=== PATIENT | female | born 1990 | race Caucasian/White ===

== ENCOUNTER 2016-09-04 18:54 | Emergency (ER) | payer OTHER ==
[~2016-09-04] VITALS: Ht 167.6 cm; Wt 88.5 kg
[~2016-09-04 18:54] MED LIST: ACULAR 3 ML3 M1 OP; ALBUTEROL2.5 MG/0.5 INH; ANAPROX DS550 MG PO; ANTIVERT25 MG PO; ATARAX25 MG PO; BACTRIM DS 8001 TA1 PO; BIAXIN500 MG PO; CLARITIN10 MG PO; CLINDAMYCIN HC300 MG PO; COLACE100 MG PO; FERROUS SULFAT325 MG PO; FLEXERIL10 MG PO; HYDROCODONE BIT1 T11 PO; LOMOTIL 0.025 M1 TAB PO; MACROBID100 M1 PO; MOTRIN800 MG PO; Motrin,Rufen800 MG PO; NKHM; NUVARING1 ICR VG; Ondansetron4 MG PO; PHENERGAN25 M1 PO; PHENERGAN25 MG RC; PRENATAL1 TA1 PO; PROGESTERONE; PROTONIX40 MG PO; TOBRADEX 0.1%-0.5 ML OPH; TOBREX OPHTH S2.5 ML OPH; ZITHROMAX Z PA250 MG PO; ZOFRAN ODT8 MG PO
[2016-09-04] MEDS ORDERED: PRENATAL VITAM1 EAC4 PO (19:15)
[2016-09-04 19:36] LABS: BASO % 0.3 % (0.0-1.0); EOS # 0.1 10*3/uL (0.0-0.4); HEMATOCRIT 41.4 % (37.0-47.0); HEMOGLOBIN 13.9 g/dl (12.0-16.0); LYMPH # 2.9 10*3/uL (1.3-4.4); LYMPH % 25.2 % (27.0-41.0); MEAN CELL VOLUME 90.2 fl (81.0-99.0); MEAN CORPUSCULAR HGB 30.3 pg (27.0-31.0); MEAN CORPUSCULAR HGB CONC 33.6 g/dl (33.0-37.0); MEAN PLATELET VOLUME 8.5 fl (9.6-12.3); MONO # 0.7 10*3/uL (0.1-1.0); MONO % 5.6 % (3.0-9.0); NEUT # 7.8 10*3/uL (2.3-7.9); NEUT % 67.6 % (47.0-73.0); PLATELET COUNT AUTOMATED 330 10*3/uL (130-400); RED BLOOD COUNT 4.59 10*6/uL (4.10-5.10); RED CELL DISTRI WIDTH 12.7 % (0-14.5); WHITE BLOOD COUNT 11.6 10*3/uL (4.8-10.8)
[2016-09-04 19:46] LABS: BILIRUBIN NEGATIVE (NEGATIVE); BLOOD 3+ (NEGATIVE); CLARITY SL CLOUDY (CLEAR); COLOR YELLOW (YELLOW); GLUCOSE NEGATIVE (NEGATIVE); KETONE 1+ (NEGATIVE); LEUKO ESTERASE NEGATIVE (NEGATIVE); NITRITE NEGATIVE (NEGATIVE); PH 5.5 (5.0-9.0); PROTEIN TRACE (NEGATIVE); SPECIFIC GRAVITY >= 1.030 (1.005-1.030); UROBILINOGEN 0.2 E.U./dl (0.2-1.0)
[2016-09-04 19:56] LABS: BACTERIA 1+; EPITHELIAL CELLS TNTC; MUCOUS 1+; URINE REFLEX COMMENT YES (NO)
[2016-09-04 20:06] LABS: BUN 11 mg/dl (7-24); CARBON DIOXIDE 26 mmol/L (21-32); CHLORIDE 104 mmol/L (98-107); EST GLOM FILT AFRICAN AMERICAN > 60 ml/min; GLUCOSE 77 mg/dL (65-99); POTASSIUM 4.1 mmol/L (3.5-5.1); SODIUM 141 mmol/L (136-145)
== END 2016-09-04 20:32 | disposition home or self-care (01) ==
LOC: ED 18:54
PROVIDERS: Nurse Practitioner Family
DX: O46.91 Antepartum hemorrhage, unspecified, first trimester (principal); Z3A.01 Less than 8 weeks gestation of pregnancy; F17.200 Nicotine dependence, unspecified, uncomplicated; Z88.0 Allergy status to penicillin; Z88.1 Allergy status to other antibiotic agents

== ENCOUNTER 2017-01-02 14:14 | Emergency (ER) | payer OTHER ==
[~2017-01-02] VITALS: Ht 167.6 cm; Wt 84.8 kg
[~2017-01-02 14:14] MED LIST changes: +PRENATAL VITAM1 EAC4 PO
[2017-01-02 14:58] LABS: BASO % 0.3 % (0.0-1.0); EOS # 0.2 10*3/uL (0.0-0.4); EOS % 1.1 % (1.0-4.0); HEMATOCRIT 36.6 % (37.0-47.0); HEMOGLOBIN 12.3 g/dl (12.0-16.0); IG # 0.1 10*3/uL (0.0-0.1); LYMPH # 2.7 10*3/uL (1.3-4.4); LYMPH % 18.7 % (27.0-41.0); MEAN CORPUSCULAR HGB 30.9 pg (27.0-31.0); MEAN CORPUSCULAR HGB CONC 33.6 g/dl (33.0-37.0); MEAN PLATELET VOLUME 8.9 fl (9.6-12.3); MONO # 0.7 10*3/uL (0.1-1.0); MONO % 4.5 % (3.0-9.0); NEUT # 10.8 10*3/uL (2.3-7.9); NEUT % 74.9 % (47.0-73.0); PLATELET COUNT AUTOMATED 306 10*3/uL (130-400); RED BLOOD COUNT 3.98 10*6/uL (4.10-5.10); RED CELL DISTRI WIDTH 12.5 % (0-14.5); WHITE BLOOD COUNT 14.4 10*3/uL (4.8-10.8)
[2017-01-02 15:14] LABS: ALKALINE PHOSPHATASE 62 U/L (45-117); BILIRUBIN, TOTAL 0.3 mg/dl (0.2-1.0); BUN 9 mg/dl (7-24); CARBON DIOXIDE 24 mmol/L (21-32); CHLORIDE 105 mmol/L (98-107); EST GLOM FILT AFRICAN AMERICAN > 60 ml/min; GLUCOSE 75 mg/dL (65-99); POTASSIUM 3.7 mmol/L (3.5-5.1); SGOT/AST 13 IU/L (3-35); SGPT/ALT 11 U/L (12-78); SODIUM 140 mmol/L (136-145); TOTAL PROTEIN 6.7 gm/dL (6.4-8.2)
[2017-01-02 15:27] LABS: BILIRUBIN NEGATIVE (NEGATIVE); BLOOD NEGATIVE (NEGATIVE); CLARITY SL CLOUDY (CLEAR); COLOR YELLOW (YELLOW); GLUCOSE NEGATIVE (NEGATIVE); KETONE NEGATIVE (NEGATIVE); LEUKO ESTERASE TRACE (NEGATIVE); NITRITE NEGATIVE (NEGATIVE); PROTEIN NEGATIVE (NEGATIVE); SPECIFIC GRAVITY 1.025 (1.005-1.030); UROBILINOGEN 0.2 E.U./dl (0.2-1.0)
[2017-01-02 15:35] LABS: BACTERIA 1+; MUCOUS 1+; RBC 0-2 rbc/hpf (0-2); URINE REFLEX COMMENT YES (NO)
== END 2017-01-02 16:45 | disposition home or self-care (01) ==
LOC: ED 14:14
PROVIDERS: Student in an Organized Health Care Education/Training Program
DX: O23.42 Unspecified infection of urinary tract in pregnancy, second trimester (principal); Z3A.23 23 weeks gestation of pregnancy; Z88.0 Allergy status to penicillin; Z88.1 Allergy status to other antibiotic agents; F41.9 Anxiety disorder, unspecified

== ENCOUNTER 2017-01-21 22:04 | Emergency (ER) | payer OTHER ==
[~2017-01-21] VITALS: Ht 167.6 cm; Wt 86.6 kg
[2017-01-21] MEDS ORDERED: MACROBID100 M1 PO (22:15)
== END 2017-01-21 22:36 | disposition left against medical advice (07) ==
LOC: ED 22:04
DX: Z00.8 Encounter for other general examination (principal); Z3A.26 26 weeks gestation of pregnancy; Z53.21 Procedure and treatment not carried out due to patient leaving prior to being seen by health care provider

== ENCOUNTER → 2017-06-03 | Outpatient (CLI) | payer OTHER | END | disposition home or self-care (01) | LOC: LAB 17:15 | DX: B95.62 Methicillin resistant Staphylococcus aureus infection as the cause of diseases classified elsewhere (principal) ==

== ENCOUNTER → 2017-10-18 | Outpatient (CLI) | payer OTHER | END | disposition home or self-care (01) | LOC: US 15:00 | DX: R10.9 Unspecified abdominal pain (principal); N89.9 Noninflammatory disorder of vagina, unspecified ==

== ENCOUNTER 2017-11-09 17:47 | Emergency (ER) | payer OTHER ==
[~2017-11-09] VITALS: Ht 167.6 cm; Wt 95.3 kg
== END 2017-11-09 19:52 | disposition home or self-care (01) ==
LOC: ED 17:47
DX: S62.334A Displaced fracture of neck of fourth metacarpal bone, right hand, initial encounter for closed fracture (principal); Z98.890 Other specified postprocedural states; Z79.899 Other long term (current) drug therapy; Z88.0 Allergy status to penicillin; Z88.1 Allergy status to other antibiotic agents; W22.01XA Walked into wall, initial encounter; Y93.89 Activity, other specified; Y92.89 Other specified places as the place of occurrence of the external cause; Y99.9 Unspecified external cause status

== ENCOUNTER → 2017-12-12 | Outpatient (CLI) | payer OTHER | END | disposition home or self-care (01) | LOC: ORTHO 02:42 | DX: S62.394D Other fracture of fourth metacarpal bone, right hand, subsequent encounter for fracture with routine healing (principal); X58.XXXD Exposure to other specified factors, subsequent encounter ==

== ENCOUNTER → 2018-01-03 | Outpatient (CLI) | payer OTHER | END | disposition home or self-care (01) | LOC: LAB 04:19 → ORTHO 04:19 | DX: Z47.89 Encounter for other orthopedic aftercare (principal); S62.334D Displaced fracture of neck of fourth metacarpal bone, right hand, subsequent encounter for fracture with routine healing; X58.XXXD Exposure to other specified factors, subsequent encounter ==

== ENCOUNTER → 2018-11-07 | Outpatient (CLI) | payer OTHER ==
[~2018-11-07] MED LIST changes: +ZOFRAN4 MG PO
[2018-11-07 19:23] LABS: PTH INTACT 175.6 pg/mL (18.5-88.0)
== END | disposition home or self-care (01) ==
LOC: LAB 17:07
PROVIDERS: Nurse Practitioner Family
DX: E83.51 Hypocalcemia (principal)

== ENCOUNTER → 2018-11-08 | Outpatient (CLI) | payer OTHER ==
[2018-11-10 17:07] LABS: HEPATITIS C QNT HCV Not Detected IU/mL (.)
== END | disposition home or self-care (01) ==
LOC: LAB 17:09
PROVIDERS: Nurse Practitioner Family
DX: R76.8 Other specified abnormal immunological findings in serum (principal)

== ENCOUNTER → 2018-12-11 | Outpatient (CLI) | payer OTHER ==
[2018-12-11 14:30] LABS: ALBUMIN 3.8 gm/dl (3.1-4.5); ALKALINE PHOSPHATASE 96 U/L (45-117); BUN 10 mg/dl (7-24); CHLORIDE 108 mmol/L (98-107); CREATININE 0.93 mg/dL (0.55-1.02); PHOSPHOROUS 2.5 mg/dL (2.5-4.9); SGOT/AST 14 IU/L (3-35); SGPT/ALT 19 U/L (12-78); SODIUM 141 mmol/L (136-145); TOTAL PROTEIN 7.4 gm/dL (6.4-8.2)
[2018-12-11 14:31] LABS: FREE T4 1.07 ng/dl (0.76-1.46)
[2018-12-11 15:15] LABS: PTH INTACT 110.8 pg/mL (18.5-88.0); VITAMIN D, 25-HYDROXY 18.5 ng/mL (30-100)
== END | disposition home or self-care (01) ==
LOC: LAB 13:47
PROVIDERS: Internal Medicine Endocrinology, Diabetes & Metabolism
DX: E03.9 Hypothyroidism, unspecified (principal); E83.51 Hypocalcemia

== ENCOUNTER → 2018-12-17 | Outpatient (CLI) | payer OTHER | END | disposition home or self-care (01) | LOC: LAB 12:41 | DX: E83.51 Hypocalcemia (principal); E03.9 Hypothyroidism, unspecified ==

== ENCOUNTER → 2019-02-15 | Outpatient (CLI) | payer OTHER | END | disposition home or self-care (01) | LOC: CT 09:57 | DX: S00.83XD Contusion of other part of head, subsequent encounter (principal); X58.XXXD Exposure to other specified factors, subsequent encounter ==

== ENCOUNTER → 2019-09-06 | Outpatient (CLI) | payer OTHER | END | disposition home or self-care (01) | LOC: RAD 14:37 | DX: R07.9 Chest pain, unspecified (principal); F41.9 Anxiety disorder, unspecified; R61 Generalized hyperhidrosis; R11.0 Nausea ==

== ENCOUNTER → 2019-09-19 | Outpatient (CLI) | payer OTHER | END | disposition home or self-care (01) | LOC: CARD 14:00 | DX: R00.2 Palpitations (principal) ==

== ENCOUNTER 2020-01-22 18:10 | Emergency (ER) | payer OTHER ==
[~2020-01-22] VITALS: Ht 167.6 cm; Wt 79.4 kg
== END 2020-01-22 18:27 | disposition home or self-care (01) ==
LOC: ED 18:10
DX: B34.9 Viral infection, unspecified (principal); R19.7 Diarrhea, unspecified; R53.83 Other fatigue; R07.89 Other chest pain; M79.10 Myalgia, unspecified site; Z88.1 Allergy status to other antibiotic agents; Z88.0 Allergy status to penicillin

== ENCOUNTER → 2020-03-25 | Outpatient (CLI) | payer OTHER | END | disposition home or self-care (01) | LOC: COVID19 00:49 | DX: U07.1 COVID-19 (principal); R05 Cough; R43.2 Parageusia; R43.0 Anosmia ==

== ENCOUNTER 2020-03-31 09:27 | Emergency (ER) | payer OTHER ==
[~2020-03-31] VITALS: Wt 79.4 kg
== END 2020-03-31 12:02 | disposition home or self-care (01) ==
LOC: ED 09:27
DX: R50.9 Fever, unspecified (principal); R06.02 Shortness of breath; R07.89 Other chest pain; R42 Dizziness and giddiness; R11.2 Nausea with vomiting, unspecified; R19.7 Diarrhea, unspecified; M79.10 Myalgia, unspecified site; Z20.828 Contact with and (suspected) exposure to other viral communicable diseases; Z88.1 Allergy status to other antibiotic agents; Z88.0 Allergy status to penicillin; Z87.891 Personal history of nicotine dependence; W01.0XXA Fall on same level from slipping, tripping and stumbling without subsequent striking against object, initial encounter; Y93.89 Activity, other specified; Y92.89 Other specified places as the place of occurrence of the external cause; Y99.8 Other external cause status

== ENCOUNTER → 2020-04-17 | Outpatient (CLI) | payer OTHER | END | disposition home or self-care (01) | LOC: CARD 17:10 | PROVIDERS: ATTEND Nurse Practitioner Family | DX: R07.9 Chest pain, unspecified (principal); U07.1 COVID-19 ==

== ENCOUNTER → 2020-05-01 | Outpatient (CLI) | payer OTHER | END | disposition home or self-care (01) | LOC: CARD 12:53 | PROVIDERS: ATTEND Nurse Practitioner Family | DX: R07.9 Chest pain, unspecified (principal); U07.1 COVID-19 ==

== ENCOUNTER → 2020-05-09 | Outpatient (CLI) | payer OTHER | END | disposition home or self-care (01) | LOC: COVID19 02:29 | PROVIDERS: ATTEND Nurse Practitioner Family | DX: U07.1 COVID-19 (principal) ==

== ENCOUNTER → 2020-06-13 | Outpatient (CLI) | payer OTHER | END | disposition home or self-care (01) | LOC: COVID19 05:38 | PROVIDERS: ATTEND Nurse Practitioner Family | DX: Z20.828 Contact with and (suspected) exposure to other viral communicable diseases (principal) ==

== ENCOUNTER 2020-09-22 17:12 | Emergency (ER) | payer OTHER ==
[~2020-09-22] VITALS: Ht 167.6 cm; Wt 90.7 kg
[2020-09-22 17:41] LABS: BASO % 0.4 % (0.0-1.0); EOS # 0.2 10*3/uL (0.0-0.4); EOS % 1.7 % (1.0-4.0); HEMATOCRIT 41.4 % (37.0-47.0); LYMPH # 2.8 10*3/uL (1.3-4.4); LYMPH % 26.3 % (27.0-41.0); MEAN CELL VOLUME 90.8 fl (81.0-99.0); MEAN CORPUSCULAR HGB 29.8 pg (27.0-31.0); MEAN CORPUSCULAR HGB CONC 32.9 g/dl (33.0-37.0); MEAN PLATELET VOLUME 8.6 fl (9.6-12.3); MONO # 0.6 10*3/uL (0.1-1.0); MONO % 5.4 % (3.0-9.0); NEUT # 6.9 10*3/uL (2.3-7.9); NEUT % 65.8 % (47.0-73.0); PLATELET COUNT AUTOMATED 313 10*3/uL (130-400); RED BLOOD COUNT 4.56 10*6/uL (4.10-5.10); RED CELL DISTRI WIDTH 12.1 % (0-14.5); WHITE BLOOD COUNT 10.5 10*3/uL (4.8-10.8)
[2020-09-22 17:54] LABS: ACT PARTIAL THROMBO TIME 26.5 SECONDS (20.0-32.1)
[2020-09-22 18:00] LABS: ALBUMIN 3.7 gm/dl (3.1-4.5); ALKALINE PHOSPHATASE 73 U/L (45-117); BUN 10 mg/dl (7-24); CHLORIDE 105 mmol/L (98-107); CREATININE 0.95 mg/dL (0.55-1.02); POTASSIUM 3.8 mmol/L (3.5-5.1); SGOT/AST 10 IU/L (3-35); SGPT/ALT 22 U/L (12-78); SODIUM 139 mmol/L (136-145); TOTAL PROTEIN 7.1 gm/dL (6.4-8.2)
[2020-09-22 18:01] LABS: TROPONIN I < 0.015 ng/ml (<0.045)
== END 2020-09-22 18:34 | disposition home or self-care (01) ==
LOC: ED 17:12
PROVIDERS: Family Medicine
DX: R07.9 Chest pain, unspecified (principal); Z88.0 Allergy status to penicillin; Z88.8 Allergy status to other drugs, medicaments and biological substances; Z79.899 Other long term (current) drug therapy; Z98.890 Other specified postprocedural states

== ENCOUNTER → 2021-06-02 | Outpatient (CLI) | payer OTHER | END | disposition home or self-care (01) | LOC: RAD 16:45 | PROVIDERS: ATTEND Nurse Practitioner Family | DX: R10.9 Unspecified abdominal pain (principal); R11.0 Nausea ==

== ENCOUNTER → 2021-06-17 | Outpatient (CLI) | payer OTHER | END | disposition home or self-care (01) | LOC: US 15:56 | PROVIDERS: ATTEND Nurse Practitioner Women's Health | DX: R10.2 Pelvic and perineal pain (principal) ==

== ENCOUNTER 2021-11-20 22:12 | Emergency (ER) | payer OTHER ==
[~2021-11-20] VITALS: Ht 167.6 cm; Wt 86.2 kg
== END 2021-11-20 22:55 | disposition home or self-care (01) ==
LOC: ED 22:12
DX: T15.02XA Foreign body in cornea, left eye, initial encounter (principal); W22.8XXA Striking against or struck by other objects, initial encounter; Y93.89 Activity, other specified; Y92.89 Other specified places as the place of occurrence of the external cause; Y99.8 Other external cause status

== ENCOUNTER 2021-12-28 17:37 | Emergency (ER) | payer OTHER ==
[~2021-12-28] VITALS: Wt 86.2 kg
[2021-12-28] MEDS ORDERED: ZITHROMAX250 MG PO (19:25)
== END 2021-12-28 19:28 | disposition home or self-care (01) ==
LOC: ED 17:37
DX: J02.9 Acute pharyngitis, unspecified (principal); Z20.822 Contact with and (suspected) exposure to COVID-19

== ENCOUNTER 2022-02-28 20:24 | Emergency (ER) | payer OTHER ==
[~2022-02-28] VITALS: Ht 167.6 cm; Wt 88.0 kg
[~2022-02-28 20:24] MED LIST changes: +ZITHROMAX250 MG PO
[2022-02-28] MEDS ORDERED: ATARAX,VISTARIL50 MG PO (20:46)
== END 2022-02-28 21:55 | disposition home or self-care (01) ==
LOC: ED 20:24
DX: F41.9 Anxiety disorder, unspecified (principal); Z88.1 Allergy status to other antibiotic agents; Z88.0 Allergy status to penicillin; Z98.890 Other specified postprocedural states

== ENCOUNTER → 2022-03-16 | Outpatient (CLI) | payer OTHER ==
[~2022-03-16] MED LIST changes: +ATARAX,VISTARIL50 MG PO
[2022-03-16 18:22] LABS: BASO # 0.1 10*3/uL (0.0-0.1); BASO % 0.7 % (0.0-1.0); EOS # 0.2 10*3/uL (0.0-0.4); EOS % 2.3 % (1.0-4.0); HEMATOCRIT 41.9 % (37.0-47.0); LYMPH # 2.4 10*3/uL (1.3-4.4); LYMPH % 33.4 % (27.0-41.0); MEAN CORPUSCULAR HGB 29.8 pg (27.0-31.0); MEAN CORPUSCULAR HGB CONC 35.1 g/dl (33.0-37.0); MEAN PLATELET VOLUME 8.5 fl (9.6-12.3); MONO # 0.5 10*3/uL (0.1-1.0); MONO % 6.8 % (3.0-9.0); NEUT % 56.5 % (47.0-73.0); PLATELET COUNT AUTOMATED 310 10*3/uL (130-400); RED BLOOD COUNT 4.93 10*6/uL (4.10-5.10); RED CELL DISTRI WIDTH 11.9 % (0-14.5); WHITE BLOOD COUNT 7.1 10*3/uL (4.8-10.8)
[2022-03-16 18:29] LABS: BILIRUBIN Negative (Negative); BLOOD Negative (Negative); CLARITY Clear (Clear); COLOR Yellow (Yellow); GLUCOSE Negative (Negative); KETONE Negative (Negative); LEUKO ESTERASE Trace (Negative); NITRITE Negative (Negative); PH 5.5 (4.5-8.0); SPECIFIC GRAVITY 1.025 (1.001-1.030); UROBILINOGEN 0.2 E.U./dl (0.0-1.0)
[2022-03-16 18:40] LABS: BACTERIA 1+; EPITHELIAL CELLS TNTC
[2022-03-16 18:41] LABS: ALKALINE PHOSPHATASE 77 U/L (45-117); BUN 18 mg/dl (7-24); CHLORIDE 108 mmol/L (98-107); CREATININE 0.91 mg/dL (0.55-1.02); POTASSIUM 3.5 mmol/L (3.5-5.1); SGOT/AST 15 IU/L (3-35); SGPT/ALT 18 U/L (12-78); SODIUM 138 mmol/L (136-145); TOTAL PROTEIN 7.1 gm/dL (6.4-8.2)
== END | disposition home or self-care (01) ==
LOC: LAB 17:50
PROVIDERS: ATTEND Family Medicine
DX: R42 Dizziness and giddiness (principal)

== ENCOUNTER 2022-04-12 15:08 | Emergency (ER) | payer OTHER ==
[~2022-04-12] VITALS: Ht 167.6 cm; Wt 88.5 kg
[2022-04-12 17:48] LABS: BASO # 0.1 10*3/uL (0.0-0.1); BASO % 0.8 % (0.0-1.0); EOS # 0.2 10*3/uL (0.0-0.4); EOS % 1.8 % (1.0-4.0); HEMATOCRIT 43.6 % (37.0-47.0); LYMPH # 2.8 10*3/uL (1.3-4.4); LYMPH % 33.2 % (27.0-41.0); MEAN CELL VOLUME 87.9 fl (81.0-99.0); MEAN CORPUSCULAR HGB 29.8 pg (27.0-31.0); MEAN CORPUSCULAR HGB CONC 33.9 g/dl (33.0-37.0); MEAN PLATELET VOLUME 8.4 fl (9.6-12.3); MONO # 0.5 10*3/uL (0.1-1.0); MONO % 5.7 % (3.0-9.0); NEUT % 58.4 % (47.0-73.0); PLATELET COUNT AUTOMATED 326 10*3/uL (130-400); RED BLOOD COUNT 4.96 10*6/uL (4.10-5.10); RED CELL DISTRI WIDTH 11.7 % (0-14.5); WHITE BLOOD COUNT 8.6 10*3/uL (4.8-10.8)
[2022-04-12 18:05] LABS: ALKALINE PHOSPHATASE 76 U/L (45-117); BUN 11 mg/dl (7-24); CHLORIDE 104 mmol/L (98-107); CREATININE 0.85 mg/dL (0.55-1.02); POTASSIUM 3.6 mmol/L (3.5-5.1); SGOT/AST 16 IU/L (3-35); SGPT/ALT 21 U/L (12-78); SODIUM 137 mmol/L (136-145); TOTAL PROTEIN 7.4 gm/dL (6.4-8.2)
== END 2022-04-12 19:08 | disposition home or self-care (01) ==
LOC: ED 15:08
PROVIDERS: Nurse Practitioner Family
DX: B34.9 Viral infection, unspecified (principal); Z20.822 Contact with and (suspected) exposure to COVID-19; Z88.0 Allergy status to penicillin; Z88.1 Allergy status to other antibiotic agents; Z79.2 Long term (current) use of antibiotics; Z79.899 Other long term (current) drug therapy; Z98.890 Other specified postprocedural states

== ENCOUNTER → 2022-08-16 | Outpatient (CLI) | payer OTHER ==
[2022-08-18 05:06] LABS: HBSAG Negative (Negative); HEP B CORE AB, IGM Negative (Negative)
== END | disposition home or self-care (01) ==
LOC: LAB 18:01
PROVIDERS: ATTEND Nurse Practitioner Family
DX: R79.89 Other specified abnormal findings of blood chemistry (principal); R60.9 Edema, unspecified; R63.5 Abnormal weight gain

== ENCOUNTER → 2022-09-17 | Outpatient (CLI) | payer OTHER | END | disposition home or self-care (01) | LOC: US 00:20 | PROVIDERS: ATTEND Nurse Practitioner Family | DX: R79.89 Other specified abnormal findings of blood chemistry (principal) ==

== ENCOUNTER → 2023-01-05 | Outpatient (CLI) | payer OTHER ==
[2023-01-05 18:50] LABS: ALKALINE PHOSPHATASE 100 U/L (46-116); BUN 9 mg/dl (9-23); CHLORIDE 104 mmol/L (98-107); POTASSIUM 3.9 mmol/L (3.4-5.1); SGPT/ALT 18 U/L (10-49); TOTAL PROTEIN 7.6 gm/dL (6.0-8.0)
[2023-01-06 07:06] LABS: ALPHA-1-ANTITRYPSIN, SERUM 143 mg/dL (100-188)
[2023-01-06 08:11] LABS: HEPATITIS B SURFACE AB Non Reactive (.)
[2023-01-06 15:07] LABS: t-TRANSGLUTAMINASE (tTG) IGA <2 U/mL (0-3); t-TRANSGLUTAMINASE (tTG) IgG <2 U/mL (0-5)
[2023-01-06 17:06] LABS: ANTI-SMOOTH MUSCLE ANTIBODY 5 Units (0-19)
[2023-01-06 19:06] LABS: HEPATITIS C QNT HCV Not Detected IU/mL (.)
== END | disposition home or self-care (01) ==
LOC: LAB 17:55
PROVIDERS: ATTEND Nurse Practitioner Family
DX: R53.83 Other fatigue (principal); R74.8 Abnormal levels of other serum enzymes; R63.5 Abnormal weight gain

== ENCOUNTER 2023-04-26 16:04 | Emergency (ER) | payer OTHER ==
[~2023-04-26] VITALS: Ht 167.6 cm; Wt 86.2 kg
[2023-04-26] MEDS ORDERED: OMNICEF300 MG PO (17:29)
== END 2023-04-26 18:02 | disposition home or self-care (01) ==
LOC: ED 16:04
DX: J18.9 Pneumonia, unspecified organism (principal); Z88.1 Allergy status to other antibiotic agents; Z88.0 Allergy status to penicillin; Z79.2 Long term (current) use of antibiotics; Z79.899 Other long term (current) drug therapy; Z98.890 Other specified postprocedural states

== ENCOUNTER 2023-10-19 10:38 | Emergency (ER) | payer OTHER ==
[~2023-10-19] VITALS: Wt 103.4 kg
[~2023-10-19 10:38] MED LIST changes: +OMNICEF300 MG PO
[2023-10-19] MEDS ORDERED: predniSONE 20 MG TAB PO ONE (11:00)
[2023-10-19] MEDS ORDERED: PREDNISONE50 MG PO (11:00)
== END 2023-10-19 11:08 | disposition home or self-care (01) ==
LOC: ED 10:38
DX: U07.1 COVID-19 (principal); S39.012A Strain of muscle, fascia and tendon of lower back, initial encounter; Z88.0 Allergy status to penicillin; Z88.1 Allergy status to other antibiotic agents; Z98.890 Other specified postprocedural states; X58.XXXA Exposure to other specified factors, initial encounter; Y93.89 Activity, other specified; Y92.89 Other specified places as the place of occurrence of the external cause; Y99.8 Other external cause status

== ENCOUNTER 2023-12-29 17:28 | Emergency (ER) | payer OTHER ==
[~2023-12-29] VITALS: Ht 167.6 cm; Wt 104.8 kg
[~2023-12-29 17:28] MED LIST changes: +PREDNISONE50 MG PO
== END 2023-12-29 18:19 | disposition left against medical advice (07) ==
LOC: ED 17:28
DX: K04.7 Periapical abscess without sinus (principal); F41.9 Anxiety disorder, unspecified; Z88.1 Allergy status to other antibiotic agents; Z88.0 Allergy status to penicillin; Z79.2 Long term (current) use of antibiotics; Z79.899 Other long term (current) drug therapy; Z98.890 Other specified postprocedural states

== ENCOUNTER 2024-02-15 17:35 | Emergency (ER) | payer OTHER ==
[~2024-02-15] VITALS: Ht 167.6 cm; Wt 106.6 kg
[2024-02-15 18:03] LABS: BASO % 0.4 % (0.0-1.0); EOS # 0.2 10*3/uL (0.0-0.4); LYMPH # 2.3 10*3/uL (1.3-4.4); LYMPH % 30.8 % (27.0-41.0); MEAN CELL VOLUME 89.2 fl (81.0-99.0); MEAN CORPUSCULAR HGB 29.7 pg (27.0-31.0); MEAN CORPUSCULAR HGB CONC 33.3 g/dl (33.0-37.0); MEAN PLATELET VOLUME 8.4 fl (9.6-12.3); MONO # 0.4 10*3/uL (0.1-1.0); MONO % 5.5 % (3.0-9.0); NEUT # 4.6 10*3/uL (2.3-7.9); PLATELET COUNT AUTOMATED 339 10*3/uL (130-400); RED BLOOD COUNT 4.71 10*6/uL (4.10-5.10); RED CELL DISTRI WIDTH 11.9 % (0-14.5); WHITE BLOOD COUNT 7.5 10*3/uL (4.8-10.8)
[2024-02-15 18:21] LABS: BUN 10 mg/dl (9-23); CHLORIDE 104 mmol/L (98-107); POTASSIUM 3.3 mmol/L (3.4-5.1)
[2024-02-15] MEDS ORDERED: Ondansetron Hydrochloride 4 MG TAB PO ONE (18:50)
[2024-02-15] MEDS ORDERED: POTASSIUM CHLORIDE 20 MEQ TAB PO ONE (18:50)
[2024-02-15] MEDS ORDERED: Ondansetron4 MG PO (18:51)
[2024-02-15] MEDS ORDERED: POTASSIUM CHLO20 ME3 PO (18:51)
== END 2024-02-15 19:05 | disposition home or self-care (01) ==
LOC: ED 17:35
PROVIDERS: Emergency Medicine
DX: E87.6 Hypokalemia (principal); R53.83 Other fatigue; K08.89 Other specified disorders of teeth and supporting structures; F41.9 Anxiety disorder, unspecified; Z88.0 Allergy status to penicillin; Z88.1 Allergy status to other antibiotic agents; Z90.49 Acquired absence of other specified parts of digestive tract; Z98.890 Other specified postprocedural states

== ENCOUNTER 2024-05-13 20:58 | Emergency (ER) | payer OTHER ==
[~2024-05-13] VITALS: Ht 167.6 cm; Wt 106.6 kg
[~2024-05-13 20:58] MED LIST changes: +POTASSIUM CHLO20 ME3 PO
[2024-05-13] MEDS ORDERED: Glucagon Hydrochloride 1 MG SYR IV ONE (21:55)
[2024-05-14] MEDS ORDERED: Metoclopramide Hydrochloride 10 MG/2 ML VIAL IV ONE (00:25)
[2024-05-14] MEDS ORDERED: FAMOTIDINE 50 ML IV ONE (00:25)
[2024-05-14] MEDS ORDERED: Dicyclomine Hydrochloride 20 MG/10 ML OSYR PO ONE (01:55)
[2024-05-14] MEDS ORDERED: MG-AL HYDROXIDE/SIMETICONE 30 ML UDC PO ONE (01:55)
[2024-05-14] MEDS ORDERED: Lidocaine Hydrochloride 15 ML UDC PO ONE (01:55)
[2024-05-14] MEDS ORDERED: PROTONIX20 MG PO (02:35)
[2024-05-14] MEDS ORDERED: CARAFATE1 GM/10 ML PO (02:35)
== END 2024-05-14 02:48 | disposition home or self-care (01) ==
LOC: ED 20:58
DX: F45.8 Other somatoform disorders (principal); E87.6 Hypokalemia; F41.9 Anxiety disorder, unspecified; Z88.0 Allergy status to penicillin; Z88.1 Allergy status to other antibiotic agents; Z98.890 Other specified postprocedural states; Z90.49 Acquired absence of other specified parts of digestive tract

== ENCOUNTER → 2024-05-16 | Outpatient (CLI) | payer OTHER ==
[~2024-05-16] MED LIST changes: +CARAFATE1 GM/10 ML PO; +PROTONIX20 MG PO
== END | disposition home or self-care (01) ==
LOC: RAD 16:22
PROVIDERS: ATTEND Nurse Practitioner Family
DX: J02.9 Acute pharyngitis, unspecified (principal); R09.A2 Foreign body sensation, throat

== ENCOUNTER 2024-09-23 15:26 | Emergency (ER) | payer OTHER ==
[~2024-09-23] VITALS: Ht 167.6 cm; Wt 86.2 kg
[2024-09-23] MEDS ORDERED: IBUPROFEN 800 MG TAB PO ONE (15:50)
== END 2024-09-23 19:10 | disposition home or self-care (01) ==
LOC: ED 15:26
DX: J10.1 Influenza due to other identified influenza virus with other respiratory manifestations (principal); Z20.822 Contact with and (suspected) exposure to COVID-19; Z88.0 Allergy status to penicillin; Z88.1 Allergy status to other antibiotic agents; Z98.890 Other specified postprocedural states; Z90.49 Acquired absence of other specified parts of digestive tract

== ENCOUNTER → 2025-05-25 | Outpatient (CLI) | payer OTHER ==
[2025-05-25 11:04] LABS: BASO # 0.0 10*3/uL (0.0-0.1); BASO % 0.4 % (0.0-1.0); EOS # 0.2 10*3/uL (0.0-0.4); EOS % 2.2 % (1.0-4.0); MEAN CELL VOLUME 92.0 fl (81.0-99.0); MEAN CORPUSCULAR HGB 30.0 pg (27.0-31.0); MEAN PLATELET VOLUME 8.4 fl (9.6-12.3); MONO # 0.5 10*3/uL (0.1-1.0); MONO % 6.3 % (3.0-9.0); NEUT # 5.0 10*3/uL (2.3-7.9); NEUT % 65.1 % (47.0-73.0); NUCLEATED RED BLOOD CELL 0.0 % (0.0-0.0); NUCLEATED RED BLOOD CELL 0.0 10*3/uL (0.0-0.0); PLATELET COUNT AUTOMATED 329 10*3/uL (130-400); RED CELL DISTRI WIDTH 12.1 % (0-14.5)
[2025-05-25 11:05] LABS: BILIRUBIN Negative (Negative); BLOOD Negative (Negative); CLARITY Clear (Clear); COLOR Yellow (Yellow); KETONE Negative (Negative); LEUKO ESTERASE Trace (Negative); NITRITE Negative (Negative); PH 5.5 (4.5-8.0); SPECIFIC GRAVITY 1.025 (1.001-1.030); UROBILINOGEN 1.0 E.U./dl (0.0-1.0)
[2025-05-25 11:39] LABS: BACTERIA TRACE; EPITHELIAL CELLS 21-30; MUCOUS 1+
[2025-05-25 12:06] LABS: BUN 20 mg/dl (9-23); LDL CHOLESTEROL 117 mg/dL (9-159); SGPT/ALT 15 U/L (5-49)
[2025-05-25 12:12] LABS: BETA-HCG, QUANT < 3.0 mIU/mL (3-10)
== END | disposition home or self-care (01) ==
LOC: LAB 10:46
PROVIDERS: ATTEND Nurse Practitioner Family
DX: Z13.6 Encounter for screening for cardiovascular disorders (principal); R60.9 Edema, unspecified; R53.83 Other fatigue; N93.9 Abnormal uterine and vaginal bleeding, unspecified; R10.24 Suprapubic pain; E04.1 Nontoxic single thyroid nodule; R59.0 Localized enlarged lymph nodes; Z68.31 Body mass index [BMI] 31.0-31.9, adult

== ENCOUNTER → 2025-06-13 | Outpatient (CLI) | payer OTHER | END | disposition home or self-care (01) | LOC: US 03:27 | PROVIDERS: ATTEND Nurse Practitioner Family | DX: D25.1 Intramural leiomyoma of uterus (principal); N83.292 Other ovarian cyst, left side; N85.4 Malposition of uterus; E04.1 Nontoxic single thyroid nodule; N93.9 Abnormal uterine and vaginal bleeding, unspecified; R10.24 Suprapubic pain; R59.0 Localized enlarged lymph nodes ==